=== PATIENT | female | born 1960 | race Caucasian/White ===

== ENCOUNTER → 2018-04-12 | Outpatient (CLI) | payer OTHER ==
[~2018-04-12] MED LIST: (None)50 MG; ALBU90OI INH; ALLERY IM; ALPR.5 PO; ALPR.5CR; ANTOXYBENA OT; ASPI325 PO; ASPI81CH PO; AZIT250 PO; Advil200 M1 PO; Aspir-Low81 MG PO; Augmentin 875-1 EACH PO; BECL25NI; BENZ100A PO; BIOTIN5000 MCG PO; BUPR100ER PO; BUPR150T2; CEFAZOLIN 1 GM; CEPH500 PO; CLIN300 PO; CLINDAMYCIN 900 MG; CLON.1 PO; Cymbalta20 MG PO; DIPATR PO; FISH OIL 1,2001 EAC1 PO; FISH OIL EC 1,1 EAC1 PO; FLONASE ALLERG9.9 ML NS; FLUO20; FLUO20 PO; HYDACE10 PO; HYDACE5 PO; HYDMOR2 PO; IBUP800 PO; KETO10 PO; L-Lysine500 M1 PO; LOPE2C PO; LOSA25 PO; METF500 PO; MULVITMIND PO; MULVITSO; NAPR220 PO; NAPR500 PO; NAPR550 PO; NEOPOLHYDS OT; OLAN10; OMEP20ER PO; ONDA4 PO; OXYACE5T PO; PENVK500 PO; PHENA200 PO; PRENATAL MULTI1 EAC3 PO; PROM25 PO; PROM25S PR; Pulmicort1 MG/2 ML IH; RXNAPNA550 PO; RXPENVK250 PO; SILSUL1TC TOP; SULTRIDS; SULTRIDS PO; TOPROPHAN CAPS1 EACH PO; TRAM50 PO; Triamcinolone A15 G2 EXT; VITAMIN D35000 UNI1 PO; Ventolin/Prove6.7 GM INH; Ventolin5 MG/1 ML; Verotin-Gr Cap1 EACH PO; ZYRTEC10 M1 PO
[2018-04-12 17:34] LABS: BASOPHILS ABSOLUTE AUTO 0.06 K/mm3 (0.00-0.23); BASOPHILS PERCENT AUTO 1 % (0-2); EOSINOPHILS ABSOLUTE AUTO 0.36 K/mm3 (0.00-0.68); EOSINOPHILS PERCENT AUTO 3 % (0-6); Hematocrit 42.4 % (33.0-51.0); Hemoglobin 13.8 g/dL (11.5-16.0); IMMATURE GRAN ABSOLUTE AUTO 0.04 K/mm3 (0.00-0.10); IMMATURE GRAN PERCENT AUTO 0 % (0-1); LYMPHOCYTES ABSOLUTE AUTO 4.35 K/mm3 (0.84-5.20); LYMPHOCYTES PERCENT AUTO 37 % (21-46); MONOCYTES ABSOLUTE AUTO 0.59 K/mm3 (0.16-1.47); MONOCYTES PERCENT AUTO 5 % (4-13); Mean Corpuscular HGB 28.3 pg (26.0-34.0); Mean Corpuscular HGB Conc 32.5 g/dL (31.5-36.5); Mean Corpuscular Volume 87 fL (80-100); Mean Platelet Volume 8.8 fL (9.1-12.4); NEUTROPHILS ABSOLUTE AUTO 6.35 K/mm3 (1.96-9.15); NEUTROPHILS PERCENT AUTO 54 % (41-73); Platelet Count 386 K/mm3 (150-400); RDW Coefficient Variation 13.3 % (11.7-14.2); RDW Standard Deviation 42.6 fL (35.1-46.3); Red Blood Cell Count 4.87 M/mm3 (3.80-5.20); White Blood Cell Count 11.75 K/mm3 (4.00-11.30)
[2018-04-12 17:46] LABS: Alanine Aminotransfer (ALT/SGP 60 U/L (12-78); Albumin, Blood 3.4 g/dL (3.4-5.0); Albumin/Globulin Ratio 0.9 (0.8-1.8); Alk Phos 115 U/L (50-136); Anion Gap 8 mmol/L (6-16); Aspartate Aminotrans (AST/SGOT 36 U/L (12-37); Bilirubin, Total 0.7 mg/dL (0.1-1.0); Blood Urea Nitrogen 17 mg/dL (8-24); Bun/Creatinine Ratio 21.9 (12.0-20.0); CHOL/HDL RATIO 4.2; CO2, Blood 26 mmol/L (21-32); Calcium, Blood 9.6 mg/dL (8.5-10.1); Chloride, Blood 105 mmol/L (98-108); Cholesterol 198 mg/dL (50-200); Creatinine, Blood 0.78 mg/dL (0.40-1.00); Globulin, Blood 3.9 g/dL (2.2-4.0); Glomerular Filtration Rate >60 (60-); Glucose, Blood 135 mg/dL (70-99); HDL Cholesterol 47 mg/dL (>39); LDL/HDL RATIO 1.9; Low Density Lipoprotein Chol 91 mg/dL (0-110); Potassium, Blood 3.7 mmol/L (3.5-5.5); Sodium, Blood 139 mmol/L (136-145); Total Protein, Blood 7.3 g/dL (6.4-8.2); Triglycerides 299 mg/dL (30-160); Very Low Density Lipoprot Chol 59 mg/dL (6-32)
== END ==
LOC: LAB SHORT 17:15
PROVIDERS: Nurse Practitioner Family
DX: Z00.00 Encounter for general adult medical examination without abnormal findings (principal); Z11.59 Encounter for screening for other viral diseases
CPT/HCPCS: 80053; 80061; 85025; 86762

== ENCOUNTER 2018-11-13 23:59 | Emergency (ER) | payer OTHER ==
[~2018-11-13] VITALS: Ht 165.1 cm; Wt 95.2 kg
[2018-11-14] MEDS ORDERED: LAMO25 (00:17)
[2018-11-14] MEDS ORDERED: Prednisone20 MG PO (01:57)
== END 2018-11-14 02:24 | disposition home or self-care (01) ==
LOC: ER 23:59
DX: J45.901 Unspecified asthma with (acute) exacerbation (principal); Z88.1 Allergy status to other antibiotic agents; Z88.8 Allergy status to other drugs, medicaments and biological substances; Z88.5 Allergy status to narcotic agent; Z79.899 Other long term (current) drug therapy; Z79.82 Long term (current) use of aspirin; Z79.52 Long term (current) use of systemic steroids
CPT/HCPCS: 71046; 94640; 94644; 99285-25

== ENCOUNTER 2019-03-29 08:14 | Day surgery (SDC) | payer OTHER ==
[~2019-03-29] VITALS: Ht 165.1 cm; Wt 98.8 kg
[~2019-03-29 08:14] MED LIST changes: +Dexmethylphenid10 MG PO; +LAMO100 PO; +LOSA50 PO; +Mirapex0.25 MG PO; +Prednisone20 MG PO
--- NOTE | 2019-03-29 11:34 | NUR ---
03/29/19 1134 Martha López PT UPDATED IN PEROP OF DELAY IN GOING BACK TO OR DUE TO PREVIOUS CASE DELAY. PT UNDERSTANDING. CALL LIGHT IN REACH AND PT READ HER BOOK.
--- NOTE | 2019-03-29 11:55 | NUR ---
03/29/19 1155 Bri Porter XYLOCAINE DILUTED TO 1% BY [address] USED FOR INJECTION
== END 2019-03-29 13:15 | disposition home or self-care (01) ==
LOC: ORSCSDS 08:14
PROVIDERS: Orthopaedic Surgery
PROC: 0LN80ZZ Release Left Hand Tendon, Open Approach (ICD-10-PCS; principal; 2019-03-29 09:30)
DX: M65.332 Trigger finger, left middle finger (principal); I10 Essential (primary) hypertension; J45.909 Unspecified asthma, uncomplicated; E66.01 Morbid (severe) obesity due to excess calories; Z68.36 Body mass index [BMI] 36.0-36.9, adult; Z79.899 Other long term (current) drug therapy
CPT/HCPCS: A9270-GY; J0690; J2250; J2704; J3010; J7120

== ENCOUNTER 2019-11-26 11:53 | Emergency (ER) | payer OTHER ==
[~2019-11-26] VITALS: Ht 165.1 cm; Wt 88.9 kg
[2019-11-26 12:44] LABS: BASOPHILS ABSOLUTE AUTO 0.04 K/mm3 (0.00-0.23); BASOPHILS PERCENT AUTO 1 % (0-2); EOSINOPHILS ABSOLUTE AUTO 0.21 K/mm3 (0.00-0.68); EOSINOPHILS PERCENT AUTO 3 % (0-6); Hemoglobin 14.2 g/dL (11.5-16.0); IMMATURE GRAN ABSOLUTE AUTO 0.02 K/mm3 (0.00-0.10); IMMATURE GRAN PERCENT AUTO 0 % (0-1); LYMPHOCYTES ABSOLUTE AUTO 2.87 K/mm3 (0.84-5.20); LYMPHOCYTES PERCENT AUTO 36 % (21-46); MONOCYTES ABSOLUTE AUTO 0.43 K/mm3 (0.16-1.47); MONOCYTES PERCENT AUTO 5 % (4-13); Mean Corpuscular HGB 27.5 pg (26.0-34.0); Mean Corpuscular HGB Conc 31.6 g/dL (31.5-36.5); Mean Corpuscular Volume 87 fL (80-100); Mean Platelet Volume 8.7 fL (9.1-12.4); NEUTROPHILS ABSOLUTE AUTO 4.33 K/mm3 (1.96-9.15); NEUTROPHILS PERCENT AUTO 55 % (41-73); Platelet Count 317 K/mm3 (150-400); RDW Coefficient Variation 13.2 % (11.7-14.2); RDW Standard Deviation 42.7 fL (35.1-46.3); Red Blood Cell Count 5.16 M/mm3 (3.80-5.20)
[2019-11-26 13:00] LABS: International Normalized Ratio 0.97; Prothrombin Time Results 10.4 Sec (9.7-11.5)
[2019-11-26 13:05] LABS: Alanine Aminotransfer (ALT/SGP 21 U/L (12-78); Albumin, Blood 3.7 g/dL (3.4-5.0); Albumin/Globulin Ratio 0.9 (0.8-1.8); Alk Phos 118 U/L (50-136); Anion Gap 4 mmol/L (6-16); Aspartate Aminotrans (AST/SGOT 15 U/L (12-37); Bilirubin, Total 0.9 mg/dL (0.1-1.0); Blood Urea Nitrogen 19 mg/dL (8-24); Bun/Creatinine Ratio 26.8 (12.0-20.0); CO2, Blood 24 mmol/L (21-32); Calcium, Blood 9.9 mg/dL (8.5-10.1); Chloride, Blood 109 mmol/L (98-108); Creatinine, Blood 0.71 mg/dL (0.40-1.00); Glomerular Filtration Rate >60 (60-); Glucose, Blood 95 mg/dL (70-99); Sodium, Blood 137 mmol/L (136-145); Total Protein, Blood 7.7 g/dL (6.4-8.2)
== END 2019-11-26 13:51 | disposition home or self-care (01) ==
LOC: ER 11:53
PROVIDERS: Physician Assistant
DX: G51.0 Bell's palsy (principal); J45.909 Unspecified asthma, uncomplicated; Z79.899 Other long term (current) drug therapy; Z88.8 Allergy status to other drugs, medicaments and biological substances; Z91.048 Other nonmedicinal substance allergy status; Z88.5 Allergy status to narcotic agent; Z79.82 Long term (current) use of aspirin; Z79.51 Long term (current) use of inhaled steroids
CPT/HCPCS: 36415; 70450; 80053; 85025; 85610; 99284-25

== ENCOUNTER 2021-01-09 09:38 | Emergency (ER) | payer OTHER ==
[~2021-01-09] VITALS: Ht 165.1 cm; Wt 90.7 kg
[~2021-01-09 09:38] MED LIST changes: +PRAM.125 PO
[2021-01-09] MEDS ORDERED: PRAMIPEXOLE D0.25 M1 PO (09:51)
[2021-01-09] MEDS ORDERED: LAMOTRIGINE100 M1 PO (09:51)
[2021-01-09] MEDS ORDERED: LOSA50 PO (09:52)
[2021-01-09] MEDS ORDERED: FOCALIN PO (09:55)
[2021-01-09] MEDS ORDERED: PROM25 PO (10:58)
== END 2021-01-09 10:56 | disposition home or self-care (01) ==
LOC: ER 09:38
DX: U07.1 COVID-19 (principal); J98.01 Acute bronchospasm
CPT/HCPCS: 71045; 99283-25

== ENCOUNTER 2023-09-06 10:25 | Day surgery (SDC) | payer OTHER ==
[~2023-09-06] VITALS: Ht 165.1 cm; Wt 71.6 kg
[~2023-09-06 10:25] MED LIST changes: +ALBU90OI; +BUDESONIDE0.5 MG/2 M INH; +FLOVENT HFA12 GM; +FOCALIN PO; +IPRAT-ALBUT 0.5-3 ML; +LAMOTRIGINE100 M1 PO; +OXYB5 PO; +PRAMIPEXOLE D0.25 M1 PO; +PRAZ2 PO
[2023-09-06] MEDS ORDERED: ZOLP5 (11:02)
[2023-09-06] MEDS ORDERED: Betamethasone V15 GM (11:03)
[2023-09-06] MEDS ORDERED: MERIBIN5 MG (11:03)
[2023-09-06] MEDS ORDERED: FOCALIN (11:04)
[2023-09-06] MEDS ORDERED: FLAX (11:05)
[2023-09-06] MEDS ORDERED: LAMO100 (11:05)
[2023-09-06] MEDS ORDERED: PRAM.5 (11:06)
[2023-09-06] MEDS ORDERED: L-Lysine500 M1 (11:06)
[2023-09-06] MEDS ORDERED: PRENATAL TABLE1 EAC2 (11:07)
[2023-09-06] MEDS ORDERED: Ventolin/Prove6.7 GM (11:08)
[2023-09-06] MEDS ORDERED: SELENIUM SULFIDE (11:10)
--- NOTE | 2023-09-06 13:56 | NUR ---
09/06/23 5080 Shreya Barron FRIENDS AT CHAIR SIDE. PT EATING APPLESAUCE, DRINKING FLUIDS
[2023-09-06 15:11] VITALS: BP 134/66
== END 2023-09-06 15:08 | disposition home or self-care (01) ==
LOC: ORSCSDS 10:25
PROVIDERS: Orthopaedic Surgery
PROC: 0LN60ZZ Release Left Lower Arm and Wrist Tendon, Open Approach (ICD-10-PCS; principal; 2023-09-06 12:45)
DX: M65.4 Radial styloid tenosynovitis [de Quervain] (principal); J45.909 Unspecified asthma, uncomplicated; I10 Essential (primary) hypertension; E78.5 Hyperlipidemia, unspecified; G47.33 Obstructive sleep apnea (adult) (pediatric); E03.9 Hypothyroidism, unspecified; F43.10 Post-traumatic stress disorder, unspecified; E78.00 Pure hypercholesterolemia, unspecified; Z79.899 Other long term (current) drug therapy
CPT/HCPCS: A9270; J0171; J0690; J1100; J2250; J2405; J2704; J2795; J3010; J7120

== ENCOUNTER → 2024-05-12 | Outpatient (CLI) | payer OTHER ==
[~2024-05-12] MED LIST changes: +Betamethasone V15 GM; +FLAX; +FOCALIN; +L-Lysine500 M1; +LAMO100; +MERIBIN5 MG; +PRAM.5; +PRENATAL TABLE1 EAC2; +SELENIUM SULFIDE; +Ventolin/Prove6.7 GM; +ZOLP5
[2024-05-12 15:13] LABS: BASOPHILS ABSOLUTE AUTO 0.06 K/mm3 (0.00-0.23); BASOPHILS PERCENT AUTO 1 % (0-2); EOSINOPHILS ABSOLUTE AUTO 0.31 K/mm3 (0.00-0.68); EOSINOPHILS PERCENT AUTO 4 % (0-6); Hemoglobin 13.5 g/dL (11.5-16.0); IMMATURE GRAN ABSOLUTE AUTO 0.01 K/mm3 (0.00-0.10); IMMATURE GRAN PERCENT AUTO 0 % (0-1); LYMPHOCYTES ABSOLUTE AUTO 2.92 K/mm3 (0.84-5.20); LYMPHOCYTES PERCENT AUTO 40 % (21-46); MONOCYTES ABSOLUTE AUTO 0.55 K/mm3 (0.16-1.47); MONOCYTES PERCENT AUTO 8 % (4-13); Mean Corpuscular HGB 28.5 pg (26.0-34.0); Mean Corpuscular HGB Conc 32.1 g/dL (31.5-36.5); Mean Corpuscular Volume 89 fL (80-100); Mean Platelet Volume 9.2 fL (9.1-12.4); NEUTROPHILS ABSOLUTE AUTO 3.53 K/mm3 (1.96-9.15); NEUTROPHILS PERCENT AUTO 48 % (41-73); Platelet Count 313 K/mm3 (150-400); RDW Coefficient Variation 12.9 % (11.7-14.2); RDW Standard Deviation 42.2 fL (35.1-46.3); Red Blood Cell Count 4.73 M/mm3 (3.80-5.20); White Blood Cell Count 7.38 K/mm3 (4.00-11.30)
[2024-05-12 15:18] LABS: Albumin, Blood 3.5 g/dL (3.4-5.0); Albumin/Globulin Ratio 1.1 (0.8-1.8); Bilirubin, Total 0.7 mg/dL (0.1-1.0); Bun/Creatinine Ratio 34.2 (12.0-20.0); Calcium, Blood 9.6 mg/dL (8.5-10.1); Creatinine, Blood 0.79 mg/dL (0.40-1.00); Globulin, Blood 3.3 g/dL (2.2-4.0); Potassium, Blood 4.2 mmol/L (3.5-5.5); Thyroid Stimulating Hormone 2.39 uIU/mL (0.360-4.800); Total Protein, Blood 6.8 g/dL (6.4-8.2)
== END ==
LOC: LAB 12:32 → LAB SHORT 12:32
PROVIDERS: Physician Assistant
DX: R53.83 Other fatigue (principal)
CPT/HCPCS: 80053; 84443; 85025; 87086

== ENCOUNTER 2025-05-24 08:26 | Day surgery (SDC) | payer OTHER ==
[~2025-05-24] VITALS: Ht 162.6 cm; Wt 70.6 kg
[2025-05-24] VITALS (23 sets, daily range): BP systolic 98–138; BP diastolic 46–84
[~2025-05-24 08:26] MED LIST changes: -LAMO100
--- NOTE | 2025-05-24 09:28 | NUR ---
Ambulatory in Day Surgery. History, Chart, Medications and Allergies reviewed before start of procedure. Lungs clear T/O to Auscultation. Patient confirms NPO status and agrees with scheduled surgery. Pre-Op teaching done. Pt verbalizes understanding. Patient States Post-Procedure ride home has been arranged.
[2025-05-24] MEDS ORDERED: Ondansetron HCl 2 MG / ML 2ML Vial ONE (10:20)
--- NOTE | 2025-05-24 10:32 | NUR ---
REPORT RECEIVED FROM ILIANA WHITAKER. VSS. PT ON RA. PT A&OX4. PT ABLE TO REPOSITION SELF IN BED. PT REQUESTING PO FLUIDS AND TOLERATING THEM WELL. PT DENIES PAIN, NAUSEA OR OTHER DISCOMFORTS.
--- NOTE | 2025-05-24 10:47 | NUR ---
Patient up to Ambulate independently. Gait steady. VSS AND CONSISTENT WITH PT BASELINE. PT HAS NO COMPLAINTS AND VERBALIZES READINESS TO GO HOME. Discharge instructions reviewed with patient. Patient verbalizes understanding. Copy given to patient to take home. Discharged via wheelchair to private car for ride home. PT BELONGINGS RETURNED TO PT.
--- NOTE | 2025-05-28 08:11 | NUR ---
05/28/25 0811 Isidra Atkinson 0943- CONFIRMED AND REVIEWED H&P, MEDCICATIONS, ALLERGIES, MEDICAL HISTORY, RESPIRATORY HISTORY, VITAL SIGNS, 3-LEAD EKG, CONSENTS, AND PHYSICIAN ORDERS. PATIENT CONFIRMS NPO STATUS AND AGREES WITH SCHEDULED PROCEDURE. MONITOR INTACT WITH CONTINUOUS PULSE OXIMETRY, CAPNOGRAPHY, 3-LEAD EKG, INTERMITTENT BP. SUPPLEMENTAL O2 TO BE TITRATED THROUGHOUT PROCEDURE TO MAINTAIN O2 SATURATION ABOVE 90%. PATIENT DETERMINED TO BE ASA APPROPRIATE FOR PROPOFOL SEDATION PRIOR TO START OF PROCEDURE BY .
== END 2025-05-24 10:48 | disposition home or self-care (01) ==
LOC: ORSCMMR 08:26 → ORD 09:30 → ORSCMMR 09:30
PROVIDERS: Internal Medicine Gastroenterology
PROC: 0DBN8ZX Excision of Sigmoid Colon, Via Natural or Artificial Opening Endoscopic, Diagnostic (ICD-10-PCS; principal; 2025-05-24 09:30)
PROC: 0DBM8ZX Excision of Descending Colon, Via Natural or Artificial Opening Endoscopic, Diagnostic (ICD-10-PCS; principal; 2025-05-24 09:30)
DX: Z12.11 Encounter for screening for malignant neoplasm of colon (principal); Z86.0101 Personal history of adenomatous and serrated colon polyps; D12.4 Benign neoplasm of descending colon; D12.5 Benign neoplasm of sigmoid colon; I10 Essential (primary) hypertension; J45.909 Unspecified asthma, uncomplicated; Z98.84 Bariatric surgery status; Z79.899 Other long term (current) drug therapy
CPT/HCPCS: 88305; J0461; J2405; J2704; J7120